=== PATIENT | male | born 1970 | race Caucasian/White ===

== ENCOUNTER 2016-11-23 05:35 | Emergency (ER) | payer MEDICARE ==
[~2016-11-23] VITALS: Ht 172.7 cm; Wt 93.4 kg
[~2016-11-23 05:35] MED LIST: 'XANAX1 MG PO; ARIPIPRAZOLE10 MG PO; CATAFLAM50 MG PO; CLINDAMYCIN150 MG PO; METFORMIN500 MG PO; MOTRIN800 MG PO; PREDNISONE20 MG PO; PROAIR HFA0.09 MG/AC IH; ROBAXIN750 MG PO; ROBITUSSIN-AC 160 ML PO; SYMBICORT1 AE1 IH; TRAMADOL HCL50 MG PO; VICODIN 5/500 505 MG PO; ZITHROMAX Z PA250 MG PO; ZOLPIDEM TART10 MG PO
[2016-11-23] MEDS ORDERED: FLOVENT HFA10.6 GM IH (05:42)
[2016-11-23] MEDS ORDERED: QVAR0.08 MG/AC INH (05:43)
[2016-11-23] MEDS ORDERED: PROAIR HFA8.5 GM INH (05:44)
[2016-11-23 05:45] VITALS: BP 145/89
[2016-11-23] MEDS ORDERED: ZITHROMAX250 MG PO (06:18)
[2016-11-23] MEDS ORDERED: FLUCONAZOLE100 MG PO (06:20)
== END 2016-11-23 06:46 | disposition home or self-care (01) ==
LOC: ED 05:35
DX: J02.9 Acute pharyngitis, unspecified (principal); J44.9 Chronic obstructive pulmonary disease, unspecified; B37.9 Candidiasis, unspecified; F17.200 Nicotine dependence, unspecified, uncomplicated; Z88.0 Allergy status to penicillin; Z79.899 Other long term (current) drug therapy

== ENCOUNTER 2017-09-10 07:54 | Inpatient (IN) | payer MEDICARE ==
[~2017-09-10] VITALS: Ht 160 cm; Wt 134.8 kg
[2017-09-10] VITALS (7 sets, daily range): BP systolic 119–138; BP diastolic 73–97
--- NOTE | ~2017-09-10 | WRIGHTHP ---
[place], [place] PATIENT HISTORY AND PHYSICAL EXAM NAME: JAIME HARTMAN [facility] #: [id number] UNIT #: [id number] ROOM: 502 DOCTOR: MELISSA DANG MD BIRTHDATE: [birth year] DOS: 09/10/2017 HISTORY OF PRESENT ILLNESS: The patient is a 46-year-old gentleman with a past medical history of: 1. Obesity. 2. Bronchial asthma. 3. Borderline diabetes mellitus. The patient presented to the Emergency Department with 1 day complaints of epigastric pains, which were severe and going into the back without any nausea or vomiting. The patient was evaluated in the Emergency Department and found to have acute pancreatitis. CT scan of the abdomen showed acute pancreatitis with extensive peripancreatic mesenteric edema and he also had leukocytosis with a white cell count of 16,900, with lipase elevation to 6321. The patient was made n.p.o., started on hydration with normal saline and admitted to [facility]. The patient denies alcoholism or smoking cigarettes. Denies any previous gallbladder or pancreatic disease. Some complains of lower chest pains, but he is associating this pain with his epigastric pains related to pancreatitis. They were consistent. No shortness of breath. No fever or chills. REVIEW OF SYSTEMS: LUNGS: No increasing shortness of breath. GASTROINTESTINAL: No nausea, vomiting. Just abdominal pains. CARDIOVASCULAR: No typical chest pain. Just pain related to the stomach pain and consistent with it. FAMILY HISTORY: Noncontributory. SOCIAL HISTORY: Denies smoking cigarettes, alcohol and drug abuse. MEDICATIONS: The patient takes Flovent and ProAir at home. ALLERGIES: Known allergies to PENICILLIN. PHYSICAL EXAMINATION: GENERAL: The patient is alert and oriented x 3, moderately obese, but in no visible distress. VITAL SIGNS: Blood pressure 104/74, heart rate of 95 beats per minute, breathing 20 times per minute, temperature 99 degrees Fahrenheit. HEENT AND NECK: Extraocular movements are intact. Sclerae are anicteric. Oral mucosa is moist and clean. No obvious facial weakness. Neck is supple without any lymphadenopathy. No thyromegaly. No JVD. No carotid arterial bruits. LUNGS: Clear to auscultation. No wheezing. No rhonchi. CARDIOVASCULAR SYSTEM: Heart rate is regular in rate and rhythm. S1 and S2 normally audible. No significant murmur or any other abnormal cardiac sounds. ABDOMEN: Epigastric tenderness on palpation. No rigidity, guarding or rebound tenderness. EXTREMITIES: Without significant cyanosis or edema. Warm to touch. CENTRAL NERVOUS SYSTEM: Alert and oriented x 3. Cranial nerves II-XII are [place], [place] PATIENT HISTORY AND PHYSICAL EXAM NAME: JAIME HARTMAN UNIT #: [id number] ROOM: [facility] DOCTOR: MELISSA DANG MD BIRTHDATE: [birth year] intact. Speech is normal. The patient is able to move all extremities. Normal muscle strength. Deep tendon reflexes are equal on both sides. Plantars were downgoing. LABORATORY DATA: Negative cardiac enzymes. Lipase was elevated to 6321 and it has improved to 1991 today. Amylase is normal. Liver enzymes are mostly normal. Sodium was low at 127. Calcium level was normal, but now slightly low at 6.8. I will continue to follow. IMPRESSION: 1. The patient with acute pancreatitis from uncertain etiology. He has no other risk factors other than obesity. Residential Life Director, Dr. Cantrell has been consulted along with Dr. Butler, the surgeon. I am monitoring patient's serum electrolytes, sodium, calcium levels and magnesium is being checked. Calcium levels have dropped a little bit, but he also has low albumin level. The patient is doing well and his abdominal pains are improving along with lipase level. I will check an ultrasound of the gallbladder to look for any gallstones, which could have resulted in biliary obstruction or caused the pancreatic obstruction. The patient has been kept n.p.o. and I will keep him hydrated with IV fluids. 2. History of bronchial asthma, treated with bronchodilators, which have been continued. 3. Leukocytosis, also improving. MELISSA DANG MD CM:HISPHYS:PATIENT HISTORY AND PHYSICAL EXAMINATION 24 35 MELISSA DANG MD 09/11/171934 interface
--- NOTE | ~2017-09-10 | CON ---
[place], [place] REPORT OF CONSULTATION NAME: JAIME HARTMAN UNIT #: [id number] ROOM: 502 DOCTOR: JOSS MARTIN MD BIRTHDATE: [birth year] DOS: 09/11/2017 HISTORY OF PRESENT ILLNESS: This is a 46-year-old patient who has presented with sudden abdominal pain and abdominal distress, was evaluated in the Emergency Room, and was admitted with multiple concerns, hyperglycemia with sugar of 440+, pseudohyponatremia as well as a lipase of greater than 6300. CT scan of the abdomen and pelvis was reviewed. Acute pancreatitis with extensive peripancreatic inflammation was noticed. The patient has been kept on IV. His sugar was addressed with normal saline infusion. His pseudohyponatremia was attempted to be corrected as sugar level is controlled. His phosphorus has been replaced. PAST MEDICAL HISTORY: Unremarkable otherwise, first time pancreatitis, first time found to be diabetic. LABORATORY DATA: Labs reviewed, records reviewed. SOCIAL HISTORY: Smoker, nonalcohol consumer. FAMILY HISTORY: Noncontributory. ALLERGIES: PENICILLIN NOTICED. REVIEW OF SYSTEMS: HEENT: Denies double vision, blurred vision. RESPIRATORY: Denies shortness of breath. CARDIOVASCULAR: Denies chest pain. DIGESTIVE SYSTEM: Abdominal pain. PHYSICAL EXAMINATION: GENITOURINARY: Obese patient. HEENT: Benign. NECK: Supple. No thyromegaly. CHEST: Symmetric anatomy, equal expansion. HEART: Normal sinus rhythm. No gallop, no murmur. ABDOMEN: Obese, large, soft. No hepato-organomegaly. Bowel sounds present. EXTREMITIES: Benign. IMPRESSION: Pancreatitis, etiology to be ruled out hypertriglyceridemia or otherwise. PLAN: Workup in progress, hydration and n.p.o. status, and pain management in progress. [place], [place] REPORT OF CONSULTATION NAME: JAIME HARTMAN UNIT #: [id number] ROOM: 502 DOCTOR: JOSS MARTIN MD BIRTHDATE: [birth year] JOSS MARTIN MD CM:CONSTR:REPORT OF CONSULTATION 37 09/12/17 0322 interface
--- NOTE | ~2017-09-10 | PR ---
[place], [place] PROGRESS NOTE [id number] UN[facility] #: [id number] ROOM: 502 DOCTOR: MELISSA DANG MD BIRTHDATE: [birth year] DOS: 09/12/2017 SUBJECTIVE: The patient is complaining of less pain and requesting some diet. He is not nauseous. OBJECTIVE: GENERAL APPEARANCE: The patient is alert and oriented x 3, in no visible distress. VITAL SIGNS: Blood pressure 120/75, heart rate of 97 beats per minute, breathing normally, afebrile, 98.2 temperature. HEENT AND NECK: Exam within normal limits. CARDIOVASCULAR SYSTEM: Heart rate is regular in rate and rhythm. S1 and S2 normally audible. LUNGS: Clear to auscultation. ABDOMEN: Tenderness in the epigastric area still there. EXTREMITIES: Without significant cyanosis or edema. IMPRESSION: 1. The patient with acute pancreatitis with improvement in lipase level which is settling down, has come down to 969. Ultrasound of the abdomen did not show any gallstones or biliary dilatation. 2. Severe hypertriglyceridemia with triglyceride levels of 1900. Probable cause of acute pancreatitis. I am starting the patient on Tricor. 3. Nonalcoholic fatty liver, NAFL. Incidental finding on ultrasound of the abdomen. 4. Obesity. The patient weighs 209 pounds with BMI of 32. The patient to work with dietary. He is n.p.o., but I will start him on a clear liquid diet, low fat and continue hydration with IV fluids. 5. History of bronchial asthma. Presently, asymptomatic. 6. Borderline diabetes mellitus history. MELISSA DANG MD CM:PNTRANS [id number] [id number] MELISSA DANG MD 09/12/17 1247 interface
--- NOTE | ~2017-09-10 | DS ---
[place], [place] DISCHARGE SUMMARY NAME: JAIME HARTMAN [facility] #: [id number] UNIT #: [id number] ROOM: 502 DOCTOR: MELISSA DANG MD BIRTHDATE: [birth year] DOS: 09/15/2017 DATE OF ADMISSION: 09/10/2017 DATE OF DISCHARGE: 09/15/2017 DISCHARGE DIAGNOSES: 1. Acute pancreatitis, resolved with treatment. 2. Severe hypertriglyceridemia causing acute pancreatitis, started on treatment. 3. Acute epigastric pain resulting from acute pancreatitis. 4. Morbid obesity. The patient worked with dietary. 5. Type 2 diabetes mellitus with reasonably controlled blood sugars. 6. Moderate protein calorie malnutrition. 7. History of bronchial asthma. HOSPITAL COURSE: The patient presented to Emergency Department with 1 day complaints of severe epigastric pains going into the back without any nausea or vomiting. The patient showed acute pancreatitis on CT scan of the abdomen with significant elevation of lipase. There was extensive peripancreatic mesenteric edema and he also had leukocytosis with white cell count 17,000 and lipase level was 6321. The patient's leukocytosis and lipase levels both subsided very quickly with hydration with normal saline and the patient was kept n.p.o. The patient was found to have elevated triglyceride levels to almost 2000 for which he was started on treatment with Lopid and the triglyceride levels are improving. Ideally patient's triglyceride levels should be lowered down to around 200 and they need to be checked again as an outpatient. The patient is being referred back to his PCP, Dr. Serafin Davis, and the patient has been instructed to see him within this week. 1. Morbid obesity, the patient educated on diet and weight loss. The patient has been kept on a low fat diet. 2. The patient was followed by surgeon, Dr. Butler and hide splitter, Dr. Cantrell and they help with patient management during the stay at the hospital. The patient appears to have achieved maximum benefit from this admission and his lipase level and leukocytosis has returned to baseline and he is being discharged to home today. 3. Acute epigastric pains treated with Dilaudid, which was finally converted to Vicodin and he is pain free now. 4. Type 2 diabetes mellitus with elevated blood sugars. Blood sugars were monitored and has started improving. He may need diabetic treatment with medications and also weight loss when he follows up as an outpatient with his PCP. 5. Moderate protein calorie malnutrition. The patient was encouraged to eat high protein, low fat diet. LABORATORY DATA: BUN and creatinine 5 and 0.6, albumin level of 2.1. Normal serum electrolytes. Ultrasound of the abdomen and pelvis did not show any gallstones or biliary obstruction. DISCHARGE MANAGEMENT: Gemfibrozil 600 mg b.i.d., Flonase nasal spray. Follow [place], [place] DISCHARGE SUMMARY NAME: [facility] [id number] UNIT #: [id number] ROOM: [facility] DOCTOR: MELISSA DANG MD BIRTHDATE: [address] Serafin Davis this week. His triglycerides needs to be repeated along with the lipase level. MELISSA DANG MD CM:ÁLVARO 1916 MELISSA DANG MD 09/16/17 0046 interface
--- NOTE | ~2017-09-10 | PR ---
[place], [place] PROGRESS NOTE NAME: JAIME HARTMAN UNIT #: [id number] ROOM: 502 DOCTOR: MELISSA DANG MD BIRTHDATE: [birth year] DOS: 09/14/2017 SUBJECTIVE: Patient continues to feel better, pains have improved and patient says he is not hurting much anymore. OBJECTIVE: VITAL SIGNS: Blood pressure 136/79, heart rate 100 beats per minute, breathing 20 times per minute, temperature 98.7 degrees Fahrenheit. GENERAL APPEARANCE: The patient is alert and oriented x 3, in no visible distress. HEENT AND NECK: Exam within normal limits. CARDIOVASCULAR SYSTEM: Heart rate is regular in rate and rhythm. S1 and S2 normally audible. LUNGS: Clear to auscultation. ABDOMEN: Soft, nontender. No obvious organomegaly. Bowel sounds are present. EXTREMITIES: Without significant cyanosis or edema. IMPRESSION: 1. Patient with acute pancreatitis with abdominal pains, mostly resolved. Patient continues to request Dilaudid apparently more than he actually needs because abdominal pains have almost resolved. I am stopping the Dilaudid and keep him on Vicodin as needed and hopefully be able to discharge him to home tomorrow. 2. Severe hypertriglyceridemia resulting in acute pancreatitis. The triglyceride levels have already come down to around 600 from 1600 at admission. 3. Obesity. Patient working with Dietary, educated on diet, especially low fat diet. 4. Type 2 diabetes mellitus. Blood sugars being monitored and reasonably controlled. 5. Moderate protein calorie malnutrition. Patient being encouraged to improve his diet. MELISSA DANG MD CM:PNTRANS [id number] 10 MELISSA DANG MD 09/14/172310 interface
--- NOTE | ~2017-09-10 | PR ---
[place], [place] PROGRESS NOTE [id number] #: [id number] ROOM: 502 DOCTOR: MELISSA DANG MD BIRTHDATE: [birth year] DOS: 09/13/2017 SUBJECTIVE: The patient is feeling much better. The abdominal pains are improving, and he is eating a clear liquid diet. OBJECTIVE: VITAL SIGNS: Blood pressure 130/76, heart rate of 99 beats per minute, breathing 18 times per minute, temperature 98 degrees Fahrenheit. GENERAL APPEARANCE: The patient is alert and oriented x 3, in no visible distress. HEENT AND NECK: Exam within normal limits. CARDIOVASCULAR SYSTEM: Heart rate is regular in rate and rhythm. S1 and S2 normally audible. LUNGS: Clear to auscultation. ABDOMEN: Obesity. Some epigastric discomfort on deep palpation. EXTREMITIES: Without significant cyanosis or edema. IMPRESSION: 1. Severe acute pancreatitis, continues to improve with diet control and the patient also started on Tricor. 2. Acute pancreatitis from severe hypertriglyceridemia. The patient started on treatment. I will repeat triglycerides in the morning. 3. The patient remains on a clear liquid diet. I will increase his diet tomorrow. 4. Obesity. The patient working on diet and with dietary. 5. History of bronchial asthma, presently asymptomatic. 6. Type 2 diabetes mellitus with blood sugar of 155. MELISSA DANG MD CM:PNTRANS 1619 6 MELISSA DANG MD 09/14/17226 interface
[~2017-09-10 07:54] MED LIST changes: +FLOVENT HFA10.6 GM IH; +FLUCONAZOLE100 MG PO; +PROAIR HFA8.5 GM INH; +QVAR0.08 MG/AC INH; +ZITHROMAX250 MG PO
[2017-09-10] MEDS ORDERED: FLOVENT HFA10.6 GM IH (08:16)
[2017-09-10] MEDS ORDERED: PROAIR HFA8.5 GM INH (08:16)
[2017-09-10 08:18] LABS: BASO # 0.1 10*3/uL (0.0-0.1); BASO % 0.4 % (0.0-1.0); EOS # 0.1 10*3/uL (0.0-0.4); EOS % 0.8 % (1.0-4.0); HEMATOCRIT 44.6 % (42.0-52.0); LYMPH # 1.3 10*3/uL (1.3-4.4); LYMPH % 7.5 % (27.0-41.0); MEAN CELL VOLUME 86.9 fl (80.0-94.0); MEAN PLATELET VOLUME 11.4 fl (9.6-12.3); NEUT # 14.3 10*3/uL (2.3-7.9); NEUT % 84.9 % (47.0-73.0); PLATELET COUNT AUTOMATED 194 10*3/uL (130-400); RED BLOOD COUNT 5.13 10*6/uL (4.50-5.90); RED CELL DISTRI WIDTH 13.3 % (0-14.5); WHITE BLOOD COUNT 16.9 10*3/uL (4.8-10.8)
[2017-09-10 08:26] LABS: MEAN CORPUSCULAR HGB CONC 34.5 g/dl (33.0-37.0)
[2017-09-10 08:27] LABS: HEMOGLOBIN 15.4 g/dl (14.0-18.0)
[2017-09-10 08:59] LABS: ALBUMIN 3.7 gm/dl (3.1-4.5); ALKALINE PHOSPHATASE 100 U/L (45-117); BUN 17 mg/dl (7-24); CHLORIDE 93 mmol/L (98-107); CREATININE 1.04 mg/dL (0.70-1.30); POTASSIUM 4.9 mmol/L (3.5-5.1); SGOT/AST 37 IU/L (3-35); SGPT/ALT 65 U/L (12-78); SODIUM 129 mmol/L (136-145); TOTAL PROTEIN 7.8 gm/dL (6.4-8.2)
[2017-09-10 09:03] LABS: INTERNATIONAL NORM RATIO 0.9 (2.0-3.5)
[2017-09-10 09:04] LABS: TROPONIN I < 0.015 ng/ml (<0.045)
[2017-09-10 09:05] LABS: ACT PARTIAL THROMBO TIME 22.9 SECONDS (20.8-31.5)
[2017-09-10 10:05] LABS: BILIRUBIN NEGATIVE (NEGATIVE); BLOOD TRACE-INTACT (NEGATIVE); CLARITY CLEAR (CLEAR); COLOR YELLOW (YELLOW); GLUCOSE 3+ (NEGATIVE); KETONE 3+ (NEGATIVE); LEUKO ESTERASE NEGATIVE (NEGATIVE); NITRITE NEGATIVE (NEGATIVE); PH 5.5 (5.0-9.0); UROBILINOGEN 0.2 E.U./dl (0.2-1.0)
[2017-09-10 10:12] LABS: RBC 0-2 rbc/hpf (0-2); WBC 0-2 wbc/hpf (0-5)
[2017-09-10 15:12] LABS: BUN 14 mg/dl (7-24); CHLORIDE 93 mmol/L (98-107); CREATININE 1.04 mg/dL (0.70-1.30); POTASSIUM 4.9 mmol/L (3.5-5.1); SODIUM 128 mmol/L (136-145)
[2017-09-10 17:07] LABS: BUN 14 mg/dl (7-24); CHLORIDE 92 mmol/L (98-107); POTASSIUM 4.7 mmol/L (3.5-5.1); SODIUM 127 mmol/L (136-145)
[2017-09-10 20:44] LABS: BUN 15 mg/dl (7-24); CHLORIDE 93 mmol/L (98-107); CREATININE 1.13 mg/dL (0.70-1.30); POTASSIUM 4.8 mmol/L (3.5-5.1); SODIUM 129 mmol/L (136-145)
[2017-09-11] VITALS: BP 117/72
[2017-09-11 06:03] LABS: BASO % 0.2 % (0.0-1.0); EOS # 0.3 10*3/uL (0.0-0.4); EOS % 2.5 % (1.0-4.0); HEMATOCRIT 41.3 % (42.0-52.0); HEMOGLOBIN 14.6 g/dl (14.0-18.0); LYMPH # 1.1 10*3/uL (1.3-4.4); LYMPH % 9.1 % (27.0-41.0); MEAN CORPUSCULAR HGB 31.5 pg (27.0-31.0); MEAN CORPUSCULAR HGB CONC 35.4 g/dl (33.0-37.0); MEAN PLATELET VOLUME 11.9 fl (9.6-12.3); MONO # 0.7 10*3/uL (0.1-1.0); NEUT # 9.9 10*3/uL (2.3-7.9); NEUT % 81.9 % (47.0-73.0); PLATELET COUNT AUTOMATED 144 10*3/uL (130-400); RED BLOOD COUNT 4.64 10*6/uL (4.50-5.90); WHITE BLOOD COUNT 12.1 10*3/uL (4.8-10.8)
[2017-09-11 06:37] LABS: ALBUMIN 2.8 gm/dl (3.1-4.5); ALKALINE PHOSPHATASE 63 U/L (45-117); BUN 20 mg/dl (7-24); CHLORIDE 94 mmol/L (98-107); CREATININE 1.26 mg/dL (0.70-1.30); SODIUM 127 mmol/L (136-145); TOTAL PROTEIN 6.8 gm/dL (6.4-8.2)
[2017-09-11 06:42] LABS: POTASSIUM 5.8 mmol/L (3.5-5.1)
[2017-09-11 06:43] LABS: LIPASE 1992 U/L (73-393); SGOT/AST 65 IU/L (3-35); SGPT/ALT 47 U/L (12-78)
[2017-09-11 08:00] VITALS: BP 109/71
[2017-09-11 12:00] VITALS: BP 100/65
[2017-09-11 12:38] LABS: BILIRUBIN 2+ (NEGATIVE); BLOOD NEGATIVE (NEGATIVE); CLARITY SL CLOUDY (CLEAR); COLOR YELLOW (YELLOW); GLUCOSE 3+ (NEGATIVE); KETONE TRACE (NEGATIVE); LEUKO ESTERASE NEGATIVE (NEGATIVE); NITRITE NEGATIVE (NEGATIVE); PH 5.5 (5.0-9.0); SPECIFIC GRAVITY >= 1.030 (1.005-1.030); UROBILINOGEN 0.2 E.U./dl (0.2-1.0)
[2017-09-11 12:52] LABS: BACTERIA 4+; HYALINE CAST 50-55
[2017-09-11 14:10] LABS: BUN 21 mg/dl (7-24); CHLORIDE 93 mmol/L (98-107); CREATININE 1.38 mg/dL (0.70-1.30); SODIUM 125 mmol/L (136-145)
[2017-09-11 14:20] LABS: POTASSIUM 4.2 mmol/L (3.5-5.1)
[2017-09-11 14:24] LABS: CPK 65 U/L (39-308)
[2017-09-11 16:00] VITALS: BP 104/74
[2017-09-11 20:00] VITALS: BP 104/69
[2017-09-12] VITALS: BP 114/77
[2017-09-12 06:25] LABS: BASO % 0.2 % (0.0-1.0); EOS # 0.3 10*3/uL (0.0-0.4); EOS % 2.7 % (1.0-4.0); HEMOGLOBIN 12.8 g/dl (14.0-18.0); LYMPH # 0.9 10*3/uL (1.3-4.4); MEAN CELL VOLUME 91.1 fl (80.0-94.0); MEAN CORPUSCULAR HGB 30.7 pg (27.0-31.0); MEAN CORPUSCULAR HGB CONC 33.7 g/dl (33.0-37.0); MEAN PLATELET VOLUME 11.7 fl (9.6-12.3); MONO # 0.7 10*3/uL (0.1-1.0); MONO % 6.1 % (3.0-9.0); NEUT # 8.9 10*3/uL (2.3-7.9); NEUT % 82.4 % (47.0-73.0); PLATELET COUNT AUTOMATED 125 10*3/uL (130-400); RED BLOOD COUNT 4.17 10*6/uL (4.50-5.90); RED CELL DISTRI WIDTH 14.1 % (0-14.5); WHITE BLOOD COUNT 10.8 10*3/uL (4.8-10.8)
[2017-09-12 07:05] LABS: CHOLESTEROL 278 mg/dL (<200)
[2017-09-12 07:44] LABS: ALBUMIN 2.4 gm/dl (3.1-4.5); ALKALINE PHOSPHATASE 65 U/L (45-117); BUN 16 mg/dl (7-24); CHLORIDE 98 mmol/L (98-107); CREATININE 0.93 mg/dL (0.70-1.30); POTASSIUM 3.9 mmol/L (3.5-5.1); SGOT/AST 24 IU/L (3-35); SGPT/ALT 33 U/L (12-78); SODIUM 130 mmol/L (136-145); TOTAL PROTEIN 6.3 gm/dL (6.4-8.2)
[2017-09-12 07:46] LABS: TRIGLYCERIDES 1900 mg/dl (<150)
[2017-09-12 07:47] LABS: LIPASE 969 U/L (73-393)
[2017-09-12 08:00] VITALS: BP 120/75
[2017-09-12 12:00] VITALS: BP 120/74
[2017-09-12 16:00] VITALS: BP 119/79
[2017-09-12 20:00] VITALS: BP 124/81
[2017-09-13] VITALS: BP 136/80
[2017-09-13 05:58] LABS: BASO # 0.1 10*3/uL (0.0-0.1); BASO % 0.4 % (0.0-1.0); EOS # 0.4 10*3/uL (0.0-0.4); EOS % 3.1 % (1.0-4.0); HEMATOCRIT 36.9 % (42.0-52.0); HEMOGLOBIN 12.6 g/dl (14.0-18.0); LYMPH # 1.2 10*3/uL (1.3-4.4); LYMPH % 10.4 % (27.0-41.0); MEAN CELL VOLUME 90.2 fl (80.0-94.0); MEAN CORPUSCULAR HGB 30.8 pg (27.0-31.0); MEAN CORPUSCULAR HGB CONC 34.1 g/dl (33.0-37.0); MEAN PLATELET VOLUME 11.1 fl (9.6-12.3); MONO # 0.8 10*3/uL (0.1-1.0); MONO % 7.2 % (3.0-9.0); NEUT # 8.9 10*3/uL (2.3-7.9); NEUT % 78.3 % (47.0-73.0); PLATELET COUNT AUTOMATED 143 10*3/uL (130-400); RED BLOOD COUNT 4.09 10*6/uL (4.50-5.90); RED CELL DISTRI WIDTH 14.1 % (0-14.5); WHITE BLOOD COUNT 11.4 10*3/uL (4.8-10.8)
[2017-09-13 06:12] LABS: ALBUMIN 2.3 gm/dl (3.1-4.5); ALKALINE PHOSPHATASE 93 U/L (45-117); BUN 8 mg/dl (7-24); CHLORIDE 96 mmol/L (98-107); CREATININE 0.72 mg/dL (0.70-1.30); LIPASE 618 U/L (73-393); PHOSPHOROUS 1.5 mg/dL (2.5-4.9); POTASSIUM 3.5 mmol/L (3.5-5.1); SGOT/AST 21 IU/L (3-35); SGPT/ALT 27 U/L (12-78); SODIUM 130 mmol/L (136-145); TOTAL PROTEIN 6.4 gm/dL (6.4-8.2)
[2017-09-13 08:00] VITALS: BP 122/76
[2017-09-13 12:00] VITALS: BP 123/75
[2017-09-13 16:00] VITALS: BP 130/76
[2017-09-13 20:00] VITALS: BP 133/81
[2017-09-13 23:53] VITALS: BP 142/78
[2017-09-14 07:50] LABS: ALBUMIN 2.4 gm/dl (3.1-4.5); BUN 6 mg/dl (7-24); CHLORIDE 94 mmol/L (98-107); CHOLESTEROL 322 mg/dL (<200); CREATININE 0.76 mg/dL (0.70-1.30); HDL CHOLESTEROL 21 mg/dl (40-60); LIPASE 538 U/L (73-393); PHOSPHOROUS 1.5 mg/dL (2.5-4.9); POTASSIUM 3.5 mmol/L (3.5-5.1); SODIUM 128 mmol/L (136-145); TRIGLYCERIDES 650 mg/dl (<150)
[2017-09-14 08:00] VITALS: BP 129/81
[2017-09-14 12:00] VITALS: BP 122/81
[2017-09-14 16:00] VITALS: BP 136/79
[2017-09-14 20:00] VITALS: BP 134/81; BP 134/94
[2017-09-15] VITALS: BP 121/82
[2017-09-15 06:15] LABS: ALBUMIN 2.1 gm/dl (3.1-4.5); BUN 5 mg/dl (7-24); CHLORIDE 97 mmol/L (98-107); CREATININE 0.66 mg/dL (0.70-1.30); PHOSPHOROUS 2.3 mg/dL (2.5-4.9); POTASSIUM 3.4 mmol/L (3.5-5.1); SODIUM 133 mmol/L (136-145)
[2017-09-15 08:00] VITALS: BP 128/76
[2017-09-15 12:00] VITALS: BP 123/92
[2017-09-15 16:00] VITALS: BP 143/83
[2017-09-15] MEDS ORDERED: CIPRO500 MG PO (19:05)
[2017-09-15] MEDS ORDERED: GEMFIBROZIL600 MG PO (19:05)
== END 2017-09-15 20:42 | disposition home or self-care (01) | DRG 438 ==
LOC: ED 07:54 → EDHOLD 09:35 → 5E 09:35
PROVIDERS: Internal Medicine; Internal Medicine Nephrology; Student in an Organized Health Care Education/Training Program
DX: K85.90 Acute pancreatitis without necrosis or infection, unspecified (principal); N17.0 Acute kidney failure with tubular necrosis; E44.0 Moderate protein-calorie malnutrition; E87.1 Hypo-osmolality and hyponatremia; E11.65 Type 2 diabetes mellitus with hyperglycemia; D72.810 Lymphocytopenia; E66.01 Morbid (severe) obesity due to excess calories; E83.39 Other disorders of phosphorus metabolism; E87.5 Hyperkalemia; K76.0 Fatty (change of) liver, not elsewhere classified; E87.8 Other disorders of electrolyte and fluid balance, not elsewhere classified; R74.8 Abnormal levels of other serum enzymes; J44.9 Chronic obstructive pulmonary disease, unspecified; E78.1 Pure hyperglyceridemia; R00.0 Tachycardia, unspecified; F17.200 Nicotine dependence, unspecified, uncomplicated; E83.51 Hypocalcemia; Z71.6 Tobacco abuse counseling; Z71.3 Dietary counseling and surveillance; Z79.899 Other long term (current) drug therapy; Z88.0 Allergy status to penicillin; Z83.2 Family history of diseases of the blood and blood-forming organs and certain disorders involving the immune mechanism; Z68.31 Body mass index [BMI] 31.0-31.9, adult

== ENCOUNTER → 2017-09-20 | Outpatient (CLI) | payer MEDICARE ==
[~2017-09-20] MED LIST changes: +CIPRO500 MG PO; +GEMFIBROZIL600 MG PO
[2017-09-20 10:10] LABS: ALBUMIN 3.1 gm/dl (3.1-4.5); BUN 10 mg/dl (7-24); CHLORIDE 98 mmol/L (98-107); CREATININE 0.98 mg/dL (0.70-1.30); LIPASE 319 U/L (73-393); SGOT/AST 25 IU/L (3-35); SGPT/ALT 48 U/L (12-78); SODIUM 133 mmol/L (136-145); TOTAL PROTEIN 7.5 gm/dL (6.4-8.2); TRIGLYCERIDES 359 mg/dl (<150); VLDL CHOLESTEROL 72 mg/dL (6-40)
[2017-09-20 10:13] LABS: ALKALINE PHOSPHATASE 117 U/L (45-117); CHOLESTEROL 257 mg/dL (<200); HDL CHOLESTEROL 26 mg/dl (40-60); LDL CHOLESTEROL 159 mg/dL (9-159)
== END | disposition home or self-care (01) ==
LOC: LAB 08:48
PROVIDERS: Family Medicine
DX: K85.90 Acute pancreatitis without necrosis or infection, unspecified (principal); E78.00 Pure hypercholesterolemia, unspecified

== ENCOUNTER → 2017-09-23 | Outpatient (CLI) | payer MEDICARE | END | disposition home or self-care (01) | LOC: LAB 10:09 | DX: E74.9 Disorder of carbohydrate metabolism, unspecified (principal) ==

== ENCOUNTER → 2017-10-25 | Day surgery (SDC) | payer MEDICARE ==
[~2017-10-25] MED LIST changes: +NORCO 5-325 TA1 EACH PO
--- NOTE | ~2017-10-25 | PROC NOTE ---
[place], [place] PROCEDURE NOTE NAME: JAIME HARTMAN [facility] #: [id number] UNIT #: [id number] ROOM: DOCTOR: MADHURI VIVAR MD BIRTHDATE: [birth year] DOS: 10/25/2017 PREOPERATIVE DIAGNOSIS: Right axillary cyst. POSTOPERATIVE DIAGNOSIS: Right axillary cyst. PROCEDURE: Excision of right axillary cyst. SURGEON: Madhuri Vivar MD ACCOUNT EXECUTIVE SALES REPRESENTATIVE: JENIFER. ANESTHESIA: Local. INDICATIONS: This is a 46-year-old gentleman who is here for an excision of right axillary cyst. The procedure and its complications were explained to the patient in detail preoperatively. Complications that were discussed included but were not limited to bleeding, infection, hematoma/seroma/abscess formation and prolonged pain. He agreed to proceed. DESCRIPTION OF PROCEDURE: After identifying the patient, the patient was brought to the operating suite and laid in the supine position. After time-out procedure was called, the parts were then shaved, painted and draped in the usual sterile fashion. An incision was marked and 1% plain lidocaine was injected in the marked incision. Incision was made and deepened in layers. The cyst was excised in its entirety after it was dissected with the help of electrocautery and sent for histopathological diagnosis. Hemostasis was achieved with the help of electrocautery. Thereafter, the subcutaneous tissue was irrigated and approximated with the help of 3-0 Vicryl in an interrupted fashion and the skin edges were approximated with the help of 4-0 Vicryl in a subcuticular running fashion. Dressing was placed. The patient tolerated the procedure well and there were no complications. Dr. Madhuri Vivar, the attending surgeon, was present throughout the operating case. Madhuri Vivar MD CM:PROCNOTE:PROCEDURE NOTE 1022 [id number] MADHURI VIVAR MD
[2017-10-25 09:10] VITALS: BP 116/79
[2017-10-25 09:57] VITALS: BP 125/81
[2017-10-25 10:03] VITALS: BP 122/82
[2017-10-25 10:09] VITALS: BP 117/81
[2017-10-25 10:15] VITALS: BP 110/80
== END ==
LOC: SDC 10-22 13:15
DX: L72.0 Epidermal cyst (principal); J45.909 Unspecified asthma, uncomplicated; E11.9 Type 2 diabetes mellitus without complications; F41.9 Anxiety disorder, unspecified; F17.210 Nicotine dependence, cigarettes, uncomplicated; Z98.890 Other specified postprocedural states; Z79.84 Long term (current) use of oral hypoglycemic drugs; Z79.899 Other long term (current) drug therapy; G47.30 Sleep apnea, unspecified; Z88.0 Allergy status to penicillin

== ENCOUNTER → 2018-03-17 | Outpatient (CLI) | payer MEDICARE ==
[2018-03-17 10:26] LABS: HEMATOCRIT 47.1 % (42.0-52.0); HEMOGLOBIN 15.6 g/dl (14.0-18.0); MEAN CELL VOLUME 91.5 fl (80.0-94.0); MEAN CORPUSCULAR HGB 30.3 pg (27.0-31.0); MEAN CORPUSCULAR HGB CONC 33.1 g/dl (33.0-37.0); MEAN PLATELET VOLUME 12.1 fl (9.6-12.3); RED BLOOD COUNT 5.15 10*6/uL (4.50-5.90); RED CELL DISTRI WIDTH 12.4 % (0-14.5); WHITE BLOOD COUNT 8.5 10*3/uL (4.8-10.8)
[2018-03-17 10:54] LABS: ALBUMIN 4.1 gm/dl (3.1-4.5); ALKALINE PHOSPHATASE 74 U/L (45-117); BUN 17 mg/dl (7-24); CHLORIDE 101 mmol/L (98-107); CHOLESTEROL 219 mg/dL (<200); CREATININE 1.08 mg/dL (0.70-1.30); HDL CHOLESTEROL 30 mg/dl (40-60); POTASSIUM 4.5 mmol/L (3.5-5.1); SGOT/AST 24 IU/L (3-35); SGPT/ALT 70 U/L (12-78); SODIUM 136 mmol/L (136-145); TOTAL PROTEIN 7.8 gm/dL (6.4-8.2); TRIGLYCERIDES 570 mg/dl (<150)
== END ==
LOC: LAB 10:02
PROVIDERS: Family Medicine
DX: E78.00 Pure hypercholesterolemia, unspecified (principal); E11.9 Type 2 diabetes mellitus without complications; E66.9 Obesity, unspecified; G62.9 Polyneuropathy, unspecified; E55.9 Vitamin D deficiency, unspecified

== ENCOUNTER 2018-06-18 15:22 | Inpatient (IN) | payer MEDICARE ==
[~2018-06-18] VITALS: Ht 172.7 cm; Wt 99.8 kg
--- NOTE | ~2018-06-18 | PR ---
[place], [place] PROGRESS NOTE [facility] [id number] UN[facility] #: [id number] ROOM: 406 DOCTOR: MELISSA DANG MD BIRTHDATE: [birth year] DOS: 06/20/2018 SUBJECTIVE: The patient's swelling and redness and pain in the left hand have gone down a little bit, but not resolved. OBJECTIVE: VITAL SIGNS: Blood pressure 133/80, heart rate 77 beats per minute, breathing 20 times per minute, temperature 98.1 degrees Fahrenheit. GENERAL APPEARANCE: The patient is alert and oriented x 3, in no visible distress. HEENT AND NECK: Exam within normal limits. CARDIOVASCULAR SYSTEM: Heart rate is regular in rate and rhythm. S1 and S2 normally audible. LUNGS: Clear to auscultation. ABDOMEN: Soft, nontender. No obvious organomegaly. Bowel sounds are present. EXTREMITIES: Swelling at the back of the left hand and some redness. The red area is reducing. IMPRESSION: 1. Cat bite at the back of the left hand with surrounding cellulitis, cleaned by wound care. The redness and swelling have slowly improved with antibiotics. The x-ray of the left and is not showing any bony abnormality. 2. Benign essential hypertension. The patient is taking diltiazem. Blood pressures are staying normal. 3. Generalized anxiety disorder, treated and controlled. The patient takes diazepam for anxiety. 4. Type 2 diabetes mellitus. The patient is on Ozempic and metformin and blood sugars are well controlled. MELISSA DANG MD CM:PNTRANS 0754 MELISSA DANG MD 06/20/18 0918 interface
--- NOTE | ~2018-06-18 | WRIGHTHP ---
[place], [place] PATIENT HISTORY AND PHYSICAL EXAM NAME: JAIME HARTMAN [facility] #: [id number] UNIT #: [id number] ROOM: 406 DOCTOR: MELISSA DANG MD BIRTHDATE: [birth year] DOS: HISTORY OF PRESENT ILLNESS: The patient is a 47-year-old gentleman with a past medical history of: 1. Pancreatitis. 2. Severe hypertriglyceridemia. 3. Type 2 diabetes mellitus. 4. History of bronchial asthma. The patient presented to Emergency Department at [facility] after cat bite, which was on Sunday, 3 days back. The patient had started developing redness and swelling at the back of his left hand along with pain. The patient was bitten by his own cat, but she does leave the house. The patient was started on rabies vaccination and after a dose of clindamycin recommended for admission and further management. Redness and swelling in the left hand is still present, although slightly improved. No chest pain, chills or rigors. No GI or urinary symptoms. No fevers. REVIEW OF SYSTEMS: RESPIRATORY: No increasing shortness of breath. GASTROINTESTINAL: No nausea, vomiting, diarrhea or constipation. CARDIOVASCULAR SYSTEM: No chest pain or palpitations. FAMILY HISTORY: Noncontributory. SOCIAL HISTORY: The patient denies smoking cigarettes, alcohol or drug abuse. HOME MEDICATIONS: The patient takes ProAir, Flovent, Vicodin, Ozempic and metformin, gabapentin and diltiazem. PHYSICAL EXAMINATION: GENERAL: Alert, oriented x 3, in no visible distress, except for morbidly obese. HEENT AND NECK: Extraocular movements are intact. Sclerae are anicteric. Oral mucosa is moist and clean. No obvious facial weakness. Neck is supple without any lymphadenopathy. No thyromegaly. No JVD. No carotid arterial bruits. LUNGS: Clear to auscultation. No wheezing. No rhonchi. CARDIOVASCULAR SYSTEM: Heart rate is regular in rate and rhythm. S1 and S2 normally audible. No significant murmur or any other abnormal cardiac sounds. ABDOMEN: Soft, nontender. No obvious organomegaly. Bowel sounds are present. No obvious herniation. EXTREMITIES: The patient has swelling and redness at the back of his left hand with area where he broke skin where the cat bit him in the same area. CENTRAL NERVOUS SYSTEM: Alert and oriented x 3. Cranial nerves II-XII are intact. Speech is normal. The patient is able to move all extremities. Normal muscle strength. Deep tendon reflexes are equal on both sides. Plantars were downgoing. LABORATORY DATA: Normal serum electrolytes. Normal CBC. [place], [place] PATIENT HISTORY AND PHYSICAL EXAM NAME: JAIME HARTMAN UNIT #: [id number] ROOM: [facility] DOCTOR: MELISSA DANG MD BIRTHDATE: [birth year] IMPRESSION: 1. The patient with cellulitis related to cat bite and swelling at the back of his left hand, being treated with vancomycin and azithromycin presently and treatment to be adjusted by Infectious Disease specialist. We will follow their management. 2. Generalized anxiety disorder, for which patient takes diltiazem. 3. Type 2 diabetes mellitus, being treated with metformin and Ozempic. The patient says his sugars are very well controlled and stay close to 100-120 range. 4. Generalized anxiety disorder. The patient takes diltiazem, which has been continued. MELISSA DANG MD CM:HISPHYS:PATIENT HISTORY AND PHYSICAL EXAMINATION 1031 1136 MELISSA DANG MD 06/19/18 1136 interface
--- NOTE | ~2018-06-18 | DS ---
[place], [place] DISCHARGE SUMMARY NAME: JAIME HARTMAN [facility] #: [id number] UNIT #: [id number] ROOM: 406 DOCTOR: MELISSA DANG MD BIRTHDATE: [birth year] DOS: 06/20/2018 DISCHARGE DIAGNOSES: 1. Cat bite at the back of the left hand, treated with antibiotics, seen by Infectious Disease specialist. 2. Benign essential hypertension. 3. Generalized anxiety disorder. 4. Type 2 diabetes mellitus. 5. Bronchial asthma. 6. Severe hypertriglyceridemia. 7. History of pancreatitis. HOSPITAL COURSE: The patient was admitted and treated for cellulitis related to the cat bite and swelling at the back of the left hand. Initially, the patient was treated with IV vancomycin and azithromycin and he started improving symptomatically and was discharged to home on antibiotics to follow up with his PCP. Infectious Diseases were consulted. Generalized anxiety disorder, treated and controlled. Benign essential hypertension. The patient is on diltiazem. Blood pressure was monitored and controlled. Type 2 diabetes mellitus treated with metformin and Zantac. Blood sugars were ranging between 100-120 range. DISCHARGE MANAGEMENT: The patient was kept on Rocephin, Glucophage, Abilify, Valium, Neurontin, morphine for pain control as needed. MELISSA DANG MD CM:DISCHARG 1525 1550 MELISSA DANG MD 07/22/18 1550 interface
[2018-06-18 15:24] VITALS: BP 122/87
[2018-06-18 16:16] LABS: BASO # 0.1 10*3/uL (0.0-0.1); BASO % 0.8 % (0.0-1.0); EOS # 0.6 10*3/uL (0.0-0.4); EOS % 6.9 % (1.0-4.0); HEMATOCRIT 45.4 % (42.0-52.0); HEMOGLOBIN 15.8 g/dl (14.0-18.0); LYMPH # 2.4 10*3/uL (1.3-4.4); LYMPH % 28.1 % (27.0-41.0); MEAN CELL VOLUME 90.8 fl (80.0-94.0); MEAN CORPUSCULAR HGB 31.6 pg (27.0-31.0); MEAN CORPUSCULAR HGB CONC 34.8 g/dl (33.0-37.0); MONO # 0.8 10*3/uL (0.1-1.0); MONO % 9.3 % (3.0-9.0); NEUT # 4.7 10*3/uL (2.3-7.9); NEUT % 54.7 % (47.0-73.0); PLATELET COUNT AUTOMATED 164 10*3/uL (130-400); RED CELL DISTRI WIDTH 12.8 % (0-14.5); WHITE BLOOD COUNT 8.6 10*3/uL (4.8-10.8)
[2018-06-18 16:32] LABS: ALBUMIN 4.1 gm/dl (3.1-4.5); ALKALINE PHOSPHATASE 69 U/L (45-117); BUN 15 mg/dl (7-24); CHLORIDE 105 mmol/L (98-107); CREATININE 0.92 mg/dL (0.70-1.30); SGOT/AST 17 IU/L (3-35); SGPT/ALT 58 U/L (12-78); SODIUM 137 mmol/L (136-145); TOTAL PROTEIN 7.8 gm/dL (6.4-8.2)
[2018-06-18] MEDS ORDERED: OZEMPIC0.25 MG/01 SQ (17:44)
[2018-06-18] MEDS ORDERED: ARIPIPRAZOLE20 MG PO (17:45)
[2018-06-18] MEDS ORDERED: GABAPENTIN800 MG PO (17:45)
[2018-06-18] MEDS ORDERED: GEMFIBROZIL600 MG PO ×2 (17:45→18:44)
[2018-06-18] MEDS ORDERED: METFORMIN HYD1000 MG PO (17:46)
[2018-06-18] MEDS ORDERED: DIAZEPAM5 MG PO (17:46)
[2018-06-18 18:25] VITALS: BP 135/88
[2018-06-18] MEDS ORDERED: NEURONTIN800 MG PO (18:40)
[2018-06-19] VITALS: BP 120/71
[2018-06-19 08:00] VITALS: BP 114/78
[2018-06-19 16:00] VITALS: BP 130/81
[2018-06-19 20:00] VITALS: BP 131/93
[2018-06-20] VITALS: BP 133/80
[2018-06-20 08:00] VITALS: BP 120/84
[2018-06-20 12:00] VITALS: BP 123/87
[2018-06-20 16:00] VITALS: BP 120/75
[2018-06-20] MEDS ORDERED: AUGMENTIN 875875 MG PO ×2 (16:30→17:01)
[2018-06-20] MEDS ORDERED: DOXYCYCLINE100 M3 PO (16:30)
[2018-06-20] MEDS ORDERED: DOXYCYCLINE MO100 M1 PO (17:01)
== END 2018-06-20 17:40 | disposition home or self-care (01) | DRG 603 ==
LOC: ED 15:22 → 4E 17:30 → EDHOLD 17:30 → 4E 18:04
PROVIDERS: Physician Assistant
DX: L03.114 Cellulitis of left upper limb (principal); E78.1 Pure hyperglyceridemia; J45.909 Unspecified asthma, uncomplicated; I10 Essential (primary) hypertension; E11.9 Type 2 diabetes mellitus without complications; F41.1 Generalized anxiety disorder; E66.9 Obesity, unspecified; F17.210 Nicotine dependence, cigarettes, uncomplicated; W55.01XA Bitten by cat, initial encounter; Y93.89 Activity, other specified; Y92.89 Other specified places as the place of occurrence of the external cause; Y99.8 Other external cause status; Z88.0 Allergy status to penicillin; Z79.84 Long term (current) use of oral hypoglycemic drugs; Z79.899 Other long term (current) drug therapy; Z68.33 Body mass index [BMI] 33.0-33.9, adult

== ENCOUNTER 2018-06-25 19:25 | Emergency (ER) | payer MEDICARE ==
[~2018-06-25] VITALS: Wt 99.8 kg
[~2018-06-25 19:25] MED LIST changes: +ARIPIPRAZOLE20 MG PO; +AUGMENTIN 875875 MG PO; +DIAZEPAM5 MG PO; +DOXYCYCLINE MO100 M1 PO; +DOXYCYCLINE100 M3 PO; +GABAPENTIN800 MG PO; +METFORMIN HYD1000 MG PO; +NEURONTIN800 MG PO; +OZEMPIC0.25 MG/01 SQ
[2018-06-25 19:26] VITALS: BP 128/66
== END 2018-06-25 20:14 | disposition home or self-care (01) ==
LOC: ED 19:25
DX: Z23 Encounter for immunization (principal); F17.200 Nicotine dependence, unspecified, uncomplicated; Z79.2 Long term (current) use of antibiotics; Z79.84 Long term (current) use of oral hypoglycemic drugs; Z79.899 Other long term (current) drug therapy

== ENCOUNTER 2018-10-23 17:11 | Emergency (ER) | payer MEDICARE ==
[~2018-10-23] VITALS: Ht 172.7 cm; Wt 95.3 kg
[2018-10-23 18:20] LABS: BASO # 0.1 10*3/uL (0.0-0.1); BASO % 0.7 % (0.0-1.0); EOS # 0.4 10*3/uL (0.0-0.4); HEMATOCRIT 46.6 % (42.0-52.0); HEMOGLOBIN 16.3 g/dl (14.0-18.0); LYMPH # 3.5 10*3/uL (1.3-4.4); LYMPH % 35.8 % (27.0-41.0); MEAN CELL VOLUME 89.4 fl (80.0-94.0); MEAN CORPUSCULAR HGB 31.3 pg (27.0-31.0); MEAN PLATELET VOLUME 11.5 fl (9.6-12.3); MONO # 0.8 10*3/uL (0.1-1.0); MONO % 7.8 % (3.0-9.0); NEUT % 51.1 % (47.0-73.0); PLATELET COUNT AUTOMATED 166 10*3/uL (130-400); RED BLOOD COUNT 5.21 10*6/uL (4.50-5.90); RED CELL DISTRI WIDTH 12.6 % (0-14.5); WHITE BLOOD COUNT 9.9 10*3/uL (4.8-10.8)
[2018-10-23 18:49] LABS: ALBUMIN 3.9 gm/dl (3.1-4.5); ALKALINE PHOSPHATASE 93 U/L (45-117); BUN 17 mg/dl (7-24); CHLORIDE 100 mmol/L (98-107); CREATININE 0.96 mg/dL (0.70-1.30); LIPASE 603 U/L (73-393); POTASSIUM 4.2 mmol/L (3.5-5.1); SGOT/AST 21 IU/L (3-35); SGPT/ALT 67 U/L (12-78); SODIUM 133 mmol/L (136-145); TOTAL PROTEIN 7.9 gm/dL (6.4-8.2)
[2018-10-23 19:08] VITALS: BP 125/81
[2018-11-12] MEDS ORDERED: PROAIR HFA8.5 GM INH (10:54)
[2018-11-12] MEDS ORDERED: GLIMEPIRIDE4 M1 PO (10:55)
== END 2018-10-23 20:22 | disposition home or self-care (01) ==
LOC: ED 17:11
PROVIDERS: Physician Assistant
DX: R74.8 Abnormal levels of other serum enzymes (principal); E11.65 Type 2 diabetes mellitus with hyperglycemia; F17.200 Nicotine dependence, unspecified, uncomplicated; Z79.2 Long term (current) use of antibiotics; Z79.899 Other long term (current) drug therapy; Z79.84 Long term (current) use of oral hypoglycemic drugs

== ENCOUNTER → 2019-07-30 | Outpatient (CLI) | payer MEDICARE ==
[~2019-07-30] MED LIST changes: +GLIMEPIRIDE4 M1 PO
[2019-07-30 09:14] LABS: HEMATOCRIT 51.7 % (42.0-52.0); HEMOGLOBIN 16.9 g/dl (14.0-18.0); MEAN CELL VOLUME 92.2 fl (80.0-94.0); MEAN CORPUSCULAR HGB 30.1 pg (27.0-31.0); MEAN CORPUSCULAR HGB CONC 32.7 g/dl (33.0-37.0); MEAN PLATELET VOLUME 11.9 fl (9.6-12.3); RED BLOOD COUNT 5.61 10*6/uL (4.50-5.90); WHITE BLOOD COUNT 9.8 10*3/uL (4.8-10.8)
[2019-07-30 09:51] LABS: CHLORIDE 104 mmol/L (98-107); POTASSIUM 4.5 mmol/L (3.5-5.1); SODIUM 136 mmol/L (136-145)
[2019-07-30 10:05] LABS: ALBUMIN 3.7 gm/dl (3.1-4.5); ALKALINE PHOSPHATASE 82 U/L (45-117); BUN 14 mg/dl (7-24); CHOLESTEROL 230 mg/dL (<200); CREATININE 1.06 mg/dL (0.70-1.30); FREE T4 0.95 ng/dl (0.76-1.46); HDL CHOLESTEROL 32 mg/dl (40-60); SGOT/AST 17 IU/L (3-35); SGPT/ALT 42 U/L (12-78); TOTAL PROTEIN 7.3 gm/dL (6.4-8.2); TRIGLYCERIDES 522 mg/dl (<150)
== END | disposition home or self-care (01) ==
LOC: LAB 08:29
PROVIDERS: Family Medicine
DX: E11.9 Type 2 diabetes mellitus without complications (principal); E78.00 Pure hypercholesterolemia, unspecified; E55.9 Vitamin D deficiency, unspecified

== ENCOUNTER → 2020-01-13 | Outpatient (CLI) | payer MEDICARE | END | disposition home or self-care (01) | LOC: US 01-08 09:30 | DX: K76.89 Other specified diseases of liver (principal) ==

== ENCOUNTER → 2020-02-05 | Outpatient (CLI) | payer MEDICARE | END | disposition home or self-care (01) | LOC: NM 02-04 07:00 | DX: R10.11 Right upper quadrant pain (principal); K82.9 Disease of gallbladder, unspecified ==

== ENCOUNTER → 2020-06-17 | Outpatient (CLI) | payer MEDICARE ==
[2020-06-17 13:12] LABS: ALBUMIN 4.1 gm/dl (3.1-4.5); ALKALINE PHOSPHATASE 104 U/L (45-117); BUN 18 mg/dl (7-24); CHLORIDE 99 mmol/L (98-107); CHOLESTEROL 220 mg/dL (<200); CPK 89 U/L (39-308); CREATININE 1.12 mg/dL (0.70-1.30); HDL CHOLESTEROL 36 mg/dl (40-60); POTASSIUM 4.6 mmol/L (3.5-5.1); SGOT/AST 21 IU/L (3-35); SGPT/ALT 52 U/L (12-78); SODIUM 134 mmol/L (136-145); TOTAL PROTEIN 7.9 gm/dL (6.4-8.2); TRIGLYCERIDES 788 mg/dl (<150)
== END | disposition home or self-care (01) ==
LOC: LAB 12:03
PROVIDERS: ATTEND Family Medicine
DX: E11.9 Type 2 diabetes mellitus without complications (principal); J45.909 Unspecified asthma, uncomplicated; F39 Unspecified mood [affective] disorder

== ENCOUNTER 2020-10-25 23:53 | Inpatient (IN) | payer MEDICARE ==
[~2020-10-25] VITALS: Ht 172.7 cm; Wt 90.8 kg
[2020-10-26] VITALS (11 sets, daily range): BP systolic 102–128; BP diastolic 56–80
[2020-10-26 02:23] LABS: BASO # 0.1 10*3/uL (0.0-0.1); BASO % 0.8 % (0.0-1.0); EOS # 0.3 10*3/uL (0.0-0.4); EOS % 2.9 % (1.0-4.0); HEMATOCRIT 49.7 % (42.0-52.0); LYMPH # 0.9 10*3/uL (1.3-4.4); LYMPH % 8.3 % (27.0-41.0); MEAN CELL VOLUME 88.1 fl (80.0-94.0); MEAN PLATELET VOLUME 11.7 fl (9.6-12.3); MONO # 0.2 10*3/uL (0.1-1.0); MONO % 2.3 % (3.0-9.0); NEUT # 8.7 10*3/uL (2.3-7.9); NEUT % 85.4 % (47.0-73.0); PLATELET COUNT AUTOMATED 204 10*3/uL (130-400); RED BLOOD COUNT 5.64 10*6/uL (4.50-5.90); RED CELL DISTRI WIDTH 12.5 % (0-14.5); WHITE BLOOD COUNT 10.2 10*3/uL (4.8-10.8)
[2020-10-26 02:37] LABS: ALBUMIN 4.1 gm/dl (3.1-4.5); ALKALINE PHOSPHATASE 89 U/L (45-117); BUN 22 mg/dl (7-24); CHLORIDE 97 mmol/L (98-107); CREATININE 1.24 mg/dL (0.70-1.30); POTASSIUM 4.4 mmol/L (3.5-5.1); SGOT/AST 36 IU/L (3-35); SGPT/ALT 81 U/L (12-78); SODIUM 130 mmol/L (136-145)
[2020-10-26] MEDS ORDERED: LATU20TA PO (08:23)
[2020-10-26 09:54] LABS: HEMATOCRIT 50.2 % (42.0-52.0); MEAN CELL VOLUME 88.8 fl (80.0-94.0); MEAN CORPUSCULAR HGB 30.1 pg (27.0-31.0); MEAN CORPUSCULAR HGB CONC 33.9 g/dl (33.0-37.0); MEAN PLATELET VOLUME 11.3 fl (9.6-12.3); PLATELET COUNT AUTOMATED 229 10*3/uL (130-400); RED BLOOD COUNT 5.65 10*6/uL (4.50-5.90); RED CELL DISTRI WIDTH 12.7 % (0-14.5); WHITE BLOOD COUNT 20.7 10*3/uL (4.8-10.8)
[2020-10-26 10:10] LABS: ALBUMIN 4.1 gm/dl (3.1-4.5); ALKALINE PHOSPHATASE 82 U/L (45-117); BUN 22 mg/dl (7-24); CHLORIDE 98 mmol/L (98-107); ETHYL ALCOHOL < 3.0 mg/dl (<3); POTASSIUM 4.4 mmol/L (3.5-5.1); SGOT/AST 25 IU/L (3-35); SGPT/ALT 79 U/L (12-78); SODIUM 132 mmol/L (136-145); TOTAL PROTEIN 8.6 gm/dL (6.4-8.2)
[2020-10-26 10:11] LABS: TOTAL CELLS COUNTED 100 #CELLS
[2020-10-26 10:12] LABS: PLATELET SUFFICIENCY NORMAL (NORMAL); VACUOLATION OF NEUTROPHILS SLIGHT
[2020-10-26] MEDS ORDERED: LEVEMIR FL100 UNIT/1 SC (16:14)
[2020-10-26] MEDS ORDERED: XANAX1 MG PO (16:15)
[2020-10-26 16:22] LABS: BILIRUBIN Negative (Negative); BLOOD Negative (Negative); CLARITY Clear (Clear); COLOR Yellow (Yellow); GLUCOSE 3+ (Negative); KETONE Negative (Negative); LEUKO ESTERASE Negative (Negative); NITRITE Negative (Negative); SPECIFIC GRAVITY >= 1.030 (1.001-1.030); UROBILINOGEN 0.2 E.U./dl (0.0-1.0)
[2020-10-26 16:29] LABS: URINE AMPHETAMINES < 1000 (1000ng/ml); URINE BARBITURATES < 200 (200ng/ml); URINE BENZODIAZEPINES < 200 (200ng/ml); URINE CANNABINOIDS (THC) < 50 (50ng/ml); URINE COCAINE > 300 (300ng/ml); URINE METHADONE < 300 (300ng/ml); URINE OPIATES < 300 (300ng/ml); URINE PHENCYCLIDINE < 25 (25ng/ml)
[2020-10-26 16:40] LABS: BACTERIA TRACE; HYALINE CAST 0-2; TRIP PHOS CRYSTALS 1+; URIC ACID CRYSTALS 1+
[2020-10-27] VITALS: BP 117/68
[2020-10-27 06:49] LABS: ALBUMIN 3.5 gm/dl (3.1-4.5); ALKALINE PHOSPHATASE 77 U/L (45-117); BUN 24 mg/dl (7-24); CHLORIDE 103 mmol/L (98-107); CREATININE 1.04 mg/dL (0.70-1.30); POTASSIUM 4.6 mmol/L (3.5-5.1); SGOT/AST 10 IU/L (3-35); SGPT/ALT 49 U/L (12-78); SODIUM 135 mmol/L (136-145); TOTAL PROTEIN 7.4 gm/dL (6.4-8.2)
[2020-10-27 08:00] VITALS: BP 126/82
[2020-10-27 08:56] LABS: BASO % 0.2 % (0.0-1.0); EOS # 0.1 10*3/uL (0.0-0.4); EOS % 0.7 % (1.0-4.0); HEMATOCRIT 43.3 % (42.0-52.0); LYMPH # 1.7 10*3/uL (1.3-4.4); LYMPH % 10.5 % (27.0-41.0); MEAN CELL VOLUME 88.5 fl (80.0-94.0); MEAN CORPUSCULAR HGB 30.5 pg (27.0-31.0); MEAN CORPUSCULAR HGB CONC 34.4 g/dl (33.0-37.0); MEAN PLATELET VOLUME 11.6 fl (9.6-12.3); MONO % 5.8 % (3.0-9.0); NEUT # 13.7 10*3/uL (2.3-7.9); NEUT % 82.3 % (47.0-73.0); PLATELET COUNT AUTOMATED 195 10*3/uL (130-400); RED BLOOD COUNT 4.89 10*6/uL (4.50-5.90); RED CELL DISTRI WIDTH 13.1 % (0-14.5); WHITE BLOOD COUNT 16.6 10*3/uL (4.8-10.8)
[2020-10-27 12:00] VITALS: BP 100/55
[2020-10-27] MEDS ORDERED: AZITHROMYCIN500 M2 PO (12:02)
[2020-10-27] MEDS ORDERED: OMNICEF300 MG PO (12:02)
[2020-10-27] MEDS ORDERED: PREDNISONE10 MG PO (12:03)
== END 2020-10-27 16:42 | disposition home or self-care (01) | DRG 871 ==
LOC: ED 23:53 → EDHOLD 10-26 06:51 → 5E 10-26 06:51
PROVIDERS: Internal Medicine; Registered Nurse; ADMIT Family Medicine; ATTEND Family Medicine
DX: A41.9 Sepsis, unspecified organism (principal); J69.0 Pneumonitis due to inhalation of food and vomit; J96.01 Acute respiratory failure with hypoxia; E87.1 Hypo-osmolality and hyponatremia; T40.1X1A Poisoning by heroin, accidental (unintentional), initial encounter; E87.8 Other disorders of electrolyte and fluid balance, not elsewhere classified; J45.909 Unspecified asthma, uncomplicated; E11.65 Type 2 diabetes mellitus with hyperglycemia; F17.210 Nicotine dependence, cigarettes, uncomplicated; F31.9 Bipolar disorder, unspecified; R65.20 Severe sepsis without septic shock; Z83.2 Family history of diseases of the blood and blood-forming organs and certain disorders involving the immune mechanism; Y92.89 Other specified places as the place of occurrence of the external cause

== ENCOUNTER → 2020-10-30 | Outpatient (CLI) | payer MEDICARE ==
[~2020-10-30] MED LIST changes: +AZITHROMYCIN500 M2 PO; +LATU20TA PO; +LEVEMIR FL100 UNIT/1 SC; +OMNICEF300 MG PO; +PREDNISONE10 MG PO; +XANAX1 MG PO
[2020-10-30 13:25] LABS: BASO # 0.1 10*3/uL (0.0-0.1); BASO % 0.5 % (0.0-1.0); EOS # 0.2 10*3/uL (0.0-0.4); EOS % 1.3 % (1.0-4.0); HEMATOCRIT 50.5 % (42.0-52.0); LYMPH # 1.9 10*3/uL (1.3-4.4); LYMPH % 14.4 % (27.0-41.0); MEAN CELL VOLUME 89.5 fl (80.0-94.0); MEAN CORPUSCULAR HGB CONC 33.5 g/dl (33.0-37.0); MEAN PLATELET VOLUME 11.7 fl (9.6-12.3); MONO # 0.4 10*3/uL (0.1-1.0); MONO % 3.1 % (3.0-9.0); NEUT # 10.7 10*3/uL (2.3-7.9); NEUT % 79.4 % (47.0-73.0); PLATELET COUNT AUTOMATED 238 10*3/uL (130-400); RED BLOOD COUNT 5.64 10*6/uL (4.50-5.90); RED CELL DISTRI WIDTH 12.5 % (0-14.5); WHITE BLOOD COUNT 13.5 10*3/uL (4.8-10.8)
[2020-10-30 13:42] LABS: ALBUMIN 3.4 gm/dl (3.1-4.5); ALKALINE PHOSPHATASE 103 U/L (45-117); BUN 21 mg/dl (7-24); CHLORIDE 95 mmol/L (98-107); CREATININE 1.18 mg/dL (0.70-1.30); POTASSIUM 5.2 mmol/L (3.5-5.1); SGOT/AST 10 IU/L (3-35); SGPT/ALT 36 U/L (12-78); SODIUM 128 mmol/L (136-145)
== END | disposition home or self-care (01) ==
LOC: LAB 12:52
PROVIDERS: ATTEND Registered Nurse
DX: J18.9 Pneumonia, unspecified organism (principal)

== ENCOUNTER → 2020-11-07 | Outpatient (CLI) | payer MEDICARE | END | disposition home or self-care (01) | LOC: RAD 16:58 | PROVIDERS: ATTEND Registered Nurse | DX: R91.8 Other nonspecific abnormal finding of lung field (principal); J18.9 Pneumonia, unspecified organism ==